=== PATIENT | female | born 1955 | race Caucasian/White ===

== ENCOUNTER → 2018-11-04 | Outpatient (CLI) | payer OTHER ==
--- NOTE | 2018-11-05 19:18 | HOLTMON ---
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 Heart rate variability was normal. There were no PVC's and rare PAC's but one 3 beat supraventricular run (3 beats: 11/14 at 9:38). No significant ST events or pauses. No atrial fibrillation was seen. Unremarkable Holter monitor. Electronically Signed On 11-05-2018 19:18:15 EST by Rob Cantrell
== END ==
LOC: M EKG 13:50
PROVIDERS: ATTEND Registered Nurse
DX: R00.2 Palpitations (principal)

== ENCOUNTER → 2024-03-14 | Outpatient (CLI) | payer MEDICARE, OTHER | LOC: M PLARAD 09:23 | PROVIDERS: ATTEND Otolaryngology | DX: H90.3 Sensorineural hearing loss, bilateral (principal) ==